=== PATIENT | female | born 1950 | race Caucasian/White ===

== ENCOUNTER 2017-12-15 13:07 | Emergency (ER) | END 2017-12-15 16:10 | disposition home or self-care (01) ==

== ENCOUNTER 2018-10-22 07:56 | Day surgery (SDC) | payer OTHER ==
[~2018-10-22] VITALS: Ht 149.9 cm; Wt 56.5 kg
[~2018-10-22 07:56] MED LIST: GABA100C14 PO; GLIM4TAB PO; LOSA25TA12 PO; METF100010 PO; METO-448 PO; SERT50TA6 PO; SIMV20TA PO
[2018-10-22 08:55] VITALS: Ht 149.9 cm; Wt 56.5 kg
[2018-10-22 09:21] VITALS: BP 149/67; PULSE 58; RESP 19
[2018-10-22] MEDS ORDERED: LIDOCAINE 4% SOLUTION 50 ML BTL ONE (09:34)
[2018-10-22] MEDS ORDERED: MIDAZOLAM 1 MG/ML 2 ML INJ ONE ×2 (10:28)
[2018-10-22] MEDS ORDERED: FENTAnyl 50 MCG/ML VIAL ONE (10:28)
[2018-10-22 10:44] VITALS: BP 116/78; RESP 20
== END 2018-10-22 16:47 | disposition home or self-care (01) ==
LOC: GIL 07:56
PROVIDERS: ATTEND Internal Medicine Gastroenterology
DX: Z12.11 Encounter for screening for malignant neoplasm of colon (principal); D12.3 Benign neoplasm of transverse colon; D13.1 Benign neoplasm of stomach; K29.80 Duodenitis without bleeding; K57.30 Diverticulosis of large intestine without perforation or abscess without bleeding; E11.9 Type 2 diabetes mellitus without complications; I10 Essential (primary) hypertension
CPT/HCPCS: 43239; 45380; 82962; 88305; 88312; 88313; J2250; J3010